=== PATIENT | female | born 1965 | race Caucasian/White ===

== ENCOUNTER 2018-02-10 13:15 | Inpatient (IN) | payer OTHER ==
[~2018-02-10] VITALS: Ht 165.1 cm; Wt 72.6 kg
[2018-02-10] MEDS ORDERED: TYLENOL325 MG PO (14:09)
[2018-02-10] MEDS ORDERED: FAMCICLOVIR500 MG PO (14:11)
[2018-02-16] MEDS ORDERED: DICLOFENAC POTA50 MG PO (08:34)
[2018-02-16] MEDS ORDERED: CIPRO500 MG PO (08:34)
[2018-02-16] MEDS ORDERED: PERCOCET 5-3251 EACH PO (08:34)
== END 2018-02-16 09:43 | DRG 743 ==
LOC: OB/GYN 02-14 07:30 → O/R 02-14 07:30 → OB/GYN 02-14 13:57
PROVIDERS: Obstetrics & Gynecology Gynecology
PROC: 0UT10ZZ Resection of Left Ovary, Open Approach (ICD-10-PCS; 2018-02-14)
PROC: 0UT90ZZ Resection of Uterus, Open Approach (ICD-10-PCS; principal; 2018-02-14 11:15)
PROC: 0UT70ZZ Resection of Bilateral Fallopian Tubes, Open Approach (ICD-10-PCS; 2018-02-14 11:15)
DX: D25.1 Intramural leiomyoma of uterus (principal); D25.0 Submucous leiomyoma of uterus; D25.2 Subserosal leiomyoma of uterus; N80.0 Endometriosis of uterus; N94.89 Other specified conditions associated with female genital organs and menstrual cycle; N83.8 Other noninflammatory disorders of ovary, fallopian tube and broad ligament; N92.0 Excessive and frequent menstruation with regular cycle; I10 Essential (primary) hypertension